=== PATIENT | female | born 1955 | race Caucasian/White ===

== ENCOUNTER 2022-04-10 13:30 | Emergency (ER) | payer MEDICARE ==
[~2022-04-10] VITALS: Ht 157.5 cm; Wt 77.2 kg
[2022-04-10] MEDS ORDERED: KETOROLAC TROMETHAMINE 60 MG/2 ML VIAL IM ONE (15:15)
[2022-04-10] MEDS ORDERED: METHOCARBAMOL 500 MG TABLET PO ONE (15:15)
[2022-04-10] MEDS ORDERED: METH-659 PO (16:02)
[2022-04-10] MEDS ORDERED: GABA-1181 PO (16:02)
[2022-04-10] MEDS ORDERED: NAPR-1025 PO (16:05)
[2022-04-10 16:10] VITALS: BP 144/80
== END 2022-04-10 16:51 | disposition home or self-care (01) ==
LOC: EMS 13:31
DX: S42.011A Anterior displaced fracture of sternal end of right clavicle, initial encounter for closed fracture (principal); I10 Essential (primary) hypertension; V49.49XA Driver injured in collision with other motor vehicles in traffic accident, initial encounter; Y93.89 Activity, other specified; Y92.89 Other specified places as the place of occurrence of the external cause; Y99.8 Other external cause status
CPT/HCPCS: 99283; 73030; 96372; J1885

== ENCOUNTER 2022-04-16 13:53 | Emergency (ER) | payer MEDICARE ==
[~2022-04-16] VITALS: Ht 154.9 cm; Wt 77.3 kg
[~2022-04-16 13:53] MED LIST: GABA-1181 PO; METH-659 PO; NAPR-1025 PO
[2022-04-16 13:56] VITALS: BP 126/74
[2022-04-16] MEDS ORDERED: LOSA-382 PO (13:58)
[2022-04-16] MEDS ORDERED: AMLO-257 PO (13:58)
== END 2022-04-16 15:09 | disposition home or self-care (01) ==
LOC: EMS 13:55
DX: S42.001D Fracture of unspecified part of right clavicle, subsequent encounter for fracture with routine healing (principal); I10 Essential (primary) hypertension; Z90.49 Acquired absence of other specified parts of digestive tract; Z90.710 Acquired absence of both cervix and uterus; Z98.890 Other specified postprocedural states; X58.XXXD Exposure to other specified factors, subsequent encounter
CPT/HCPCS: 99281; Z7502